=== PATIENT | male | born 1960 | race Caucasian/White ===

== ENCOUNTER 2017-07-21 06:47 | Emergency (ER) | payer BC ==
[~2017-07-21] VITALS: Ht 177.8 cm; Wt 136.1 kg
[~2017-07-21 06:47] MED LIST: ABILIFY 5 MG TAB5 M1 PO; ABILIFY10 MG PO; ABILIFY20 MG PO; BUPROPION XL300 MG PO; BUTORPHANOLNS2 NASAL; CALCIUM 600 +1 EAC1 PO; CALCIUM 600 WI1 EAC5 PO; CYMBALTA60 MG PO; DILTIAZEM ER180 M1 PO; ETODOLAC 400 M400 MG PO; HYDROCHLOROTHIA25 M1 PO; HYDROCHLOROTHIA25 M2 PO; HYDROCODONE-AP1 EAC6 PO; KLOR-CON 1010 MEQ PO; MIRALAX17 GM PO; NORCO 5-325 TA1 EACH PO; NORFLEX100 MG PO; OMEPRAZOLE20 M2 PO; OXCARBAZEPINE300 M1 PO; PHENERGAN 25 MG25 M1 PO; POTASSIUM20 PO; RELPAX40 MG PO; SENOKOT-S1 TA1 PO; VITAMIN D1000 UNI1 PO; VITAMIN D250000 UNIT; VITAMIN D32000 UNIT PO; VYTORIN 10-101 EACH PO; VYTORIN 10-401 EACH PO; Vitamin D2; ZOFRAN ODT4 MG PO; ZOMIG5 M1 NASAL
[2017-07-21] MEDS ORDERED: FISH OIL 1,001000 M2 PO (07:06)
[2017-07-21 08:59] VITALS: BP 127/80
== END 2017-07-21 09:01 | disposition home or self-care (01) ==
LOC: M.ERS 06:47
DX: G43.909 Migraine, unspecified, not intractable, without status migrainosus (principal); I10 Essential (primary) hypertension; K21.9 Gastro-esophageal reflux disease without esophagitis; Z98.890 Other specified postprocedural states

== ENCOUNTER 2018-06-15 13:20 | Inpatient (IN) | payer BC ==
[~2018-06-15] VITALS: Ht 180.3 cm; Wt 143.8 kg
[~2018-06-15 13:20] MED LIST changes: +FISH OIL 1,001000 M2 PO; -OXCARBAZEPINE300 M1 PO; +OXCARBAZEPINE300 MG PO
[2018-06-15] MEDS ORDERED: FLOMAX0.4 MG PO (13:48)
[2018-06-15] MEDS ORDERED: VITAMIN E400 UNIT PO (13:48)
[2018-06-15] MEDS ORDERED: TOPAMAX50 MG PO (13:48)
[2018-06-15 13:51] VITALS: BP 151/83
[2018-06-15 14:01] LABS: ABSOLUTE BASOPHILS 0.1 thou/uL (0.0-0.2); ABSOLUTE EOSINOPHILS 0.1 thou/uL (0.0-0.7); ABSOLUTE LYMPHOCYTES 1.6 thou/uL (0.8-5.3); ABSOLUTE MONOCYTES 0.9 thou/uL (0.0-1.2); ABSOLUTE NEUTROPHILS 7.7 thou/uL (1.6-8.1); BASOPHILS 0.5 %; HEMATOCRIT 46.6 % (42.0-52.0); HEMOGLOBIN 15.4 gm/dL (14.0-18.0); MCH 27.3 pg (26.0-34.0); MCHC 33.1 g/dL (28.0-37.0); MCV 82.4 fL (80.0-100.0); MPV 7.6 fl. (7.2-11.1); NUCLEATED RBCS 0 /100WBC; PLATELET COUNT* 365 thou/uL (150-400); POLYS 74.5 %; RBC 5.65 mil/uL (4.50-6.00); RDW-CV 15.5 % (10.5-14.5); WBC 10.4 thou/uL (4.0-11.0)
[2018-06-15 14:09] LABS: CALCIUM 9.8 mg/dL (8.5-10.1); CREATININE 1.2 mg/dL (0.6-1.3); POTASSIUM 3.1 mmol/L (3.5-5.1)
[2018-06-15 14:13] LABS: ALBUMIN 4.2 g/dL (3.4-5.0); TOTAL BILIRUBIN 0.4 mg/dL (<0.1-1.0); TOTAL PROTEIN 8.9 g/dL (6.4-8.2)
[2018-06-15 14:16] LABS: URINE BILIRUBIN NEGATIVE (Negative); URINE BLOOD NEGATIVE (Negative); URINE CLARITY CLEAR; URINE COLOR YELLOW; URINE GLUCOSE-RANDOM NEGATIVE (Negative); URINE KETONES NEGATIVE (Negative); URINE LEUKOCYTES-REFLEX NEGATIVE (Negative); URINE NITRITE-REFLEX NEGATIVE (Negative); URINE PROTEIN TRACE (Negative); URINE SPECIFIC GRAVITY >= 1.030 (1.005-1.030); URINE UROBILINOGEN 0.2 E.U./dl (0.2-1.0)
[2018-06-15 18:53] VITALS: BP 117/65
[2018-06-15 22:00] VITALS: BP 124/71
[2018-06-16 07:16] LABS: HEMATOCRIT 38.8 % (42.0-52.0); MCH 27.7 pg (26.0-34.0); MCHC 33.4 g/dL (28.0-37.0); MCV 82.9 fL (80.0-100.0); MPV 7.6 fl. (7.2-11.1); RBC 4.68 mil/uL (4.50-6.00); RDW-CV 15.7 % (10.5-14.5); WBC 6.1 thou/uL (4.0-11.0)
[2018-06-16 07:37] LABS: CALCIUM 8.5 mg/dL (8.5-10.1); MAGNESIUM 1.8 mg/dL (1.8-2.4); PHOSPHORUS* 3.7 mg/dL (2.5-4.9)
[2018-06-16 08:30] VITALS: BP 107/51
[2018-06-16 12:16] VITALS: BP 127/69
[2018-06-16 15:51] VITALS: BP 108/57
[2018-06-16 20:30] VITALS: BP 107/54
[2018-06-17 07:43] VITALS: BP 123/63
[2018-06-17 10:29] VITALS: BP 123/63
== END 2018-06-17 14:10 | disposition home or self-care (01) | DRG 389 ==
LOC: M.ERS 13:20 → M.TBA-ER 16:36 → M.ORTHSURG 16:36
PROVIDERS: Nurse Practitioner Family; ADMIT Internal Medicine
DX: K56.600 Partial intestinal obstruction, unspecified as to cause (principal); Z68.41 Body mass index [BMI] 40.0-44.9, adult; K52.9 Noninfective gastroenteritis and colitis, unspecified; I10 Essential (primary) hypertension; E11.9 Type 2 diabetes mellitus without complications; K21.9 Gastro-esophageal reflux disease without esophagitis; G43.909 Migraine, unspecified, not intractable, without status migrainosus; E78.5 Hyperlipidemia, unspecified; N40.0 Benign prostatic hyperplasia without lower urinary tract symptoms; F32.9 Major depressive disorder, single episode, unspecified; E66.9 Obesity, unspecified; E86.0 Dehydration; K76.0 Fatty (change of) liver, not elsewhere classified; Z79.899 Other long term (current) drug therapy

== ENCOUNTER 2018-06-23 19:03 | Emergency (ER) | payer BC ==
[~2018-06-23] VITALS: Ht 180.3 cm; Wt 140.6 kg
[~2018-06-23 19:03] MED LIST changes: +FLOMAX0.4 MG PO; +TOPAMAX50 MG PO; +VITAMIN E400 UNIT PO
[2018-06-23 20:15] LABS: HEMATOCRIT 45.2 % (42.0-52.0); HEMOGLOBIN 14.9 gm/dL (14.0-18.0); MCH 27.4 pg (26.0-34.0); MCV 83.2 fL (80.0-100.0); MPV 7.4 fl. (7.2-11.1); NUCLEATED RBCS 0 /100WBC; PLATELET COUNT* 332 thou/uL (150-400); RBC 5.44 mil/uL (4.50-6.00); WBC 12.6 thou/uL (4.0-11.0)
[2018-06-23 20:35] LABS: ALKALINE PHOSPHATASE 97 U/L (46-116); ANION GAP 12 mmol/L (7-16); BUN 15 mg/dL (7-18); CALCIUM 9.4 mg/dL (8.5-10.1); CHLORIDE 100 mmol/L (98-107); CO2 23 mmol/L (21-32); CREATININE 1.2 mg/dL (0.6-1.3); GLUCOSE 119 mg/dL (70-99); LIPASE 132 U/L (73-393); POTASSIUM 3.7 mmol/L (3.5-5.1); SGOT 18 U/L (15-37); SGPT 34 U/L (30-65); SODIUM 135 mmol/L (136-145); TOTAL BILIRUBIN 0.4 mg/dL (<0.1-1.0); TOTAL PROTEIN 8.6 g/dL (6.4-8.2); TROPONIN-I LEVEL <0.06 ng/mL (<0.06)
[2018-06-23 20:38] LABS: ABSOLUTE BASOPHILS 0.1 thou/uL (0.0-0.2); ABSOLUTE EOSINOPHILS 0.1 thou/uL (0.0-0.7); ABSOLUTE LYMPHOCYTES 0.9 thou/uL (0.8-5.3); ABSOLUTE MONOCYTES 0.9 thou/uL (0.0-1.2); ABSOLUTE NEUTROPHILS 10.6 thou/uL (1.6-8.1); PLATELET ESTIMATE ADEQUATE
[2018-06-23 20:57] LABS: URINE BILIRUBIN NEGATIVE (Negative); URINE BLOOD NEGATIVE (Negative); URINE CLARITY CLEAR; URINE COLOR YELLOW; URINE GLUCOSE-RANDOM NEGATIVE (Negative); URINE KETONES TRACE (Negative); URINE LEUKOCYTES-REFLEX NEGATIVE (Negative); URINE NITRITE-REFLEX NEGATIVE (Negative); URINE PROTEIN NEGATIVE (Negative); URINE SPECIFIC GRAVITY >= 1.030 (1.005-1.030); URINE UROBILINOGEN 0.2 E.U./dl (0.2-1.0)
[2018-06-23] MEDS ORDERED: PHENERGAN 25 MG25 M1 PO (21:47)
[2018-06-23] MEDS ORDERED: NORCO 5-325 TA1 EACH PO (22:43)
[2018-06-23 23:11] VITALS: BP 103/55
--- NOTE | 2018-06-24 10:58 | EKG ---
[place] [address] ELECTROCARDIOGRAM REPORT Name: CALOS ARAMBULA [id number] Admission: 06/23/18 Attend Phys: Discharge: 06/23/18 Date of : 56 Report #: [id number] THIS REPORT FOR: //name// [facility] ED Test Date: 2018-06-23 Test Time: 19:51:19 Pat Name: CALOS ARAMBULA Department: Room: Gender: M Auto Transmission Specialist: Gabriel MENG : 1960 Requested By: Gretchen Dodge Order Number: [id number] MD: Octavio Santana Measurements Intervals [place] Rate: 79 P: 54 VT: 154 QRS: 72 QRSD: 96 T: 46 QT: 368 QTc: 422 Interpretive Statements Sinus rhythm Compared to ECG 06/12/2014 17:21:11 No significant changes Electronically Signed On 06-24-2018 10:58:03 [employer]LECTRON[employer] OFFICER by Octavio Santana [email or web address] <ELECTRONICALLY SIGNED> By: Octavio Santana MD, [facility] 06/24/18 1058 50 50 Octavio Santana MD, FACC /EPI
== END 2018-06-23 23:11 | disposition home or self-care (01) ==
LOC: M.ERS 19:03
PROVIDERS: Nurse Practitioner Family
DX: K52.9 Noninfective gastroenteritis and colitis, unspecified (principal); I10 Essential (primary) hypertension; K21.9 Gastro-esophageal reflux disease without esophagitis; G43.909 Migraine, unspecified, not intractable, without status migrainosus; Z96.652 Presence of left artificial knee joint

== ENCOUNTER → 2018-10-28 | Outpatient (CLI) | payer BC | LOC: M.LAB 04:40 | DX: E87.4 Mixed disorder of acid-base balance (principal); Z86.2 Personal history of diseases of the blood and blood-forming organs and certain disorders involving the immune mechanism ==

== ENCOUNTER 2018-11-24 18:49 | Emergency (ER) | payer BC ==
[~2018-11-24] VITALS: Ht 180.3 cm; Wt 142.9 kg
[2018-11-24] MEDS ORDERED: AIMOVIG AU70 MG/1 ML (19:02)
[2018-11-24] MEDS ORDERED: PHENERGAN 25 MG25 M1 PO (20:13)
[2018-11-24 20:26] VITALS: BP 139/76
== END 2018-11-24 20:27 | disposition home or self-care (01) ==
LOC: M.ERS 18:49
DX: G43.009 Migraine without aura, not intractable, without status migrainosus (principal); I10 Essential (primary) hypertension; K21.9 Gastro-esophageal reflux disease without esophagitis

== ENCOUNTER 2018-12-02 15:28 | Emergency (ER) | payer BC ==
[~2018-12-02] VITALS: Ht 180.3 cm; Wt 142.9 kg
[~2018-12-02 15:28] MED LIST changes: +AIMOVIG AU70 MG/1 ML
[2018-12-02 16:48] VITALS: BP 155/73
== END 2018-12-02 16:50 | disposition home or self-care (01) ==
LOC: M.ERS 15:28
DX: G43.909 Migraine, unspecified, not intractable, without status migrainosus (principal); I10 Essential (primary) hypertension; K21.9 Gastro-esophageal reflux disease without esophagitis

== ENCOUNTER 2019-02-01 18:21 | Emergency (ER) | payer BC ==
[~2019-02-01] VITALS: Ht 180.3 cm; Wt 140.6 kg
[2019-02-01 21:21] VITALS: BP 134/83
== END 2019-02-01 21:22 | disposition home or self-care (01) ==
LOC: M.ERS 18:21
DX: G43.009 Migraine without aura, not intractable, without status migrainosus (principal); K21.9 Gastro-esophageal reflux disease without esophagitis; I10 Essential (primary) hypertension

== ENCOUNTER 2019-02-27 15:16 | Emergency (ER) | payer BC ==
[~2019-02-27] VITALS: Ht 180.3 cm; Wt 140.6 kg
[2019-02-27 16:12] VITALS: BP 139/67
== END 2019-02-27 16:13 | disposition home or self-care (01) ==
LOC: M.ERS 15:16
DX: G43.009 Migraine without aura, not intractable, without status migrainosus (principal); K21.9 Gastro-esophageal reflux disease without esophagitis; I10 Essential (primary) hypertension; G43.909 Migraine, unspecified, not intractable, without status migrainosus

== ENCOUNTER 2019-04-01 23:58 | Emergency (ER) | payer BC ==
[~2019-04-01] VITALS: Ht 180.3 cm; Wt 140.6 kg
[2019-04-02 00:50] LABS: HEMATOCRIT 31.1 % (42.0-52.0); HEMOGLOBIN 9.6 gm/dL (14.0-18.0); MCH 18.8 pg (26.0-34.0); MCHC 30.8 g/dL (28.0-37.0); MPV 8.4 fl. (7.2-11.1); RBC 5.1 mil/uL (4.50-6.00); RDW-CV 21.8 % (10.5-14.5); WBC 4.7 thou/uL (4.0-11.0)
[2019-04-02 00:56] LABS: CALCIUM 8.5 mg/dL (8.5-10.1); CREATININE 1.2 mg/dL (0.6-1.3); POTASSIUM 3.5 mmol/L (3.5-5.1)
[2019-04-02 01:01] LABS: ALBUMIN 3.5 g/dL (3.4-5.0); TOTAL BILIRUBIN 0.1 mg/dL (<0.1-1.0); TOTAL PROTEIN 7.2 g/dL (6.4-8.2)
[2019-04-02 01:09] LABS: SALICYLATE < 2.8 mg/dL (2.8-20.0)
[2019-04-02 01:10] LABS: ACETAMINOPHEN < 2 ug/mL (10-30); ALCOHOL < 10 mg/dL (<10)
[2019-04-02 01:34] VITALS: BP 152/85
== END 2019-04-02 01:36 | disposition home or self-care (01) ==
LOC: M.ERS 23:58
PROVIDERS: Personal Emergency Response Attendant
DX: G43.909 Migraine, unspecified, not intractable, without status migrainosus (principal); I10 Essential (primary) hypertension; K21.9 Gastro-esophageal reflux disease without esophagitis; Z96.652 Presence of left artificial knee joint

== ENCOUNTER 2019-04-18 07:44 | Emergency (ER) | payer BC ==
[~2019-04-18] VITALS: Ht 180.3 cm; Wt 140.6 kg
[2019-04-18] MEDS ORDERED: PHENERGAN 25 MG25 M1 PO (08:56)
[2019-04-18] MEDS ORDERED: NORFLEX100 MG PO (08:56)
[2019-04-18] MEDS ORDERED: PREDNISONE50 MG PO (08:56)
[2019-04-18 09:03] VITALS: BP 161/87
== END 2019-04-18 09:00 | disposition home or self-care (01) ==
LOC: M.ERS 07:44
DX: G43.909 Migraine, unspecified, not intractable, without status migrainosus (principal); I10 Essential (primary) hypertension; K21.9 Gastro-esophageal reflux disease without esophagitis

== ENCOUNTER 2019-06-03 19:36 | Emergency (ER) | payer BC ==
[~2019-06-03] VITALS: Ht 180.3 cm; Wt 145.2 kg
[~2019-06-03 19:36] MED LIST changes: +PREDNISONE50 MG PO
[2019-06-03] MEDS ORDERED: PHENERGAN 25 MG25 M1 PO (21:05)
[2019-06-03] MEDS ORDERED: NORFLEX100 MG PO (21:05)
[2019-06-03] MEDS ORDERED: PREDNISONE 10 M10 M1 PO (21:05)
[2019-06-03 21:14] VITALS: BP 145/85
== END 2019-06-03 21:15 | disposition home or self-care (01) ==
LOC: M.ERS 19:36
DX: G43.909 Migraine, unspecified, not intractable, without status migrainosus (principal); I10 Essential (primary) hypertension; K21.9 Gastro-esophageal reflux disease without esophagitis

== ENCOUNTER 2019-07-27 19:17 | Emergency (ER) | payer BC ==
[~2019-07-27] VITALS: Ht 180.3 cm; Wt 145.2 kg
[~2019-07-27 19:17] MED LIST changes: +PREDNISONE 10 M10 M1 PO
[2019-07-27] MEDS ORDERED: METFORMIN HCL500 M3 PO (19:40)
[2019-07-27] MEDS ORDERED: AJOVY225 MG/1.5 SUBQ (19:40)
[2019-07-27 21:15] VITALS: BP 155/95
== END 2019-07-27 21:15 | disposition home or self-care (01) ==
LOC: M.ERS 19:17
DX: G43.909 Migraine, unspecified, not intractable, without status migrainosus (principal); K21.9 Gastro-esophageal reflux disease without esophagitis

== ENCOUNTER 2020-03-13 19:26 | Emergency (ER) | payer BC ==
[~2020-03-13] VITALS: Ht 180.3 cm; Wt 140.6 kg
[~2020-03-13 19:26] MED LIST changes: +AJOVY225 MG/1.5 SUBQ; +METFORMIN HCL500 M3 PO
[2020-03-13] MEDS ORDERED: PENICILLIN VK500 M1 PO (21:24)
[2020-03-13] MEDS ORDERED: ULTRAM 50MG TAB50 MG PO (21:24)
[2020-03-13 21:30] VITALS: BP 166/98
== END 2020-03-13 21:30 | disposition home or self-care (01) ==
LOC: M.ERS 19:26
DX: K08.89 Other specified disorders of teeth and supporting structures (principal); I10 Essential (primary) hypertension; K21.9 Gastro-esophageal reflux disease without esophagitis; G43.909 Migraine, unspecified, not intractable, without status migrainosus